=== PATIENT | male | born 1955 | race Caucasian/White ===

== ENCOUNTER → 2016-11-01 | Outpatient (CLI) | payer OTHER ==
[~2016-11-01] MED LIST: ADVAIR HFA120 INHALA IH; ASPIR 8181 M1 PO; COZAAR100 MG PO; MICROZIDE12.5 M1 PO; NORVASC10 MG PO; PRAVACHOL40 MG PO; PREDNISONE10 M1 PO; SPIRIVA1 INHALATI IH; VENTOLIN HFA18 GM IH; ZITHROMAX250 MG PO
== END | disposition home or self-care (01) ==
LOC: CDC 08:24
DX: Z01.810 Encounter for preprocedural cardiovascular examination (principal); K42.0 Umbilical hernia with obstruction, without gangrene
CPT/HCPCS: 93000

== ENCOUNTER 2016-11-04 11:50 | Day surgery (SDC) | payer OTHER ==
[~2016-11-04] VITALS: Ht 180.3 cm; Wt 78.0 kg
[2016-11-04 12:26] VITALS: BP 122/88
[2016-11-04] MEDS ORDERED: NORCO 5/3251 TABLET PO (15:17)
[2016-11-04 15:45] VITALS: BP 136/84
[2016-11-04 16:20] VITALS: BP 136/81
== END 2016-11-04 16:29 | disposition home or self-care (01) ==
LOC: SDC
PROC: 0WQF0ZZ Repair Abdominal Wall, Open Approach (ICD-10-PCS; principal; 2016-11-04)
DX: K42.0 Umbilical hernia with obstruction, without gangrene (principal); I10 Essential (primary) hypertension; E78.5 Hyperlipidemia, unspecified; J44.9 Chronic obstructive pulmonary disease, unspecified; Z79.51 Long term (current) use of inhaled steroids
CPT/HCPCS: C1781; J0330; J0690; J1170; J2250; J2405; J3010; S0020